=== PATIENT | male | born 1980 | race Caucasian/White ===

== ENCOUNTER 2019-10-30 11:05 | Emergency (ER) | payer SELFPAY ==
--- NOTE | 2019-10-30 11:07 | ED.PDOC ---
History of Present Illness - General Time Seen by Provider: 10/30/19 11:07 Source: patient - History of Present Illness Initial Comments: 39 yo male with PMH of HTN, chronic smoker, marijuana abuse, noncompliance who presents with cc of chest pain. Reports has had a PRIDE for several days now. Approx 45 mins ago reported acute worsening of PRIDE - 8/10 severity, sharp, over whole head, no radiation, no known exacerbating factors. Shortly after that he developed new onset chest pain - located to center of chest, sharp constant 9/10 severity pains, worse with exertion, some radiation down left arm, accompanied by slight diaphoresis, nausea, and dyspnea. Took ASA 325 mg and came to ED - now reports only 5/10 severity and nausea and dyspnea resolved. States he has hx of HTN but does not take medicine and rarely sees a doctor. Denies fevers, chills, cough, vomiting/diarrhea, abd pain, leg swelling. No reported hx of cardiac disease. Allergies/Adverse Reactions: Allergies NO KNOWN ALLERGY Allergy (Verified 10/30/19 11:23) Review of Systems - Review of Systems Review of Systems: 10/30/19 11:31 as per HPI All other Systems: Reviewed and Negative Family Medical History - Family History Mother Family History: Unknown Physical Exam - Physical Exam General Appearance: Alert, No apparent distress Eye Exam: bilateral normal Ears, Nose, Throat: hearing grossly normal, normal ENT inspection, normal pharynx Neck: non-tender, full range of motion, supple, normal inspection Respiratory: rales - Bibasilar, other - diminished breath sounds throughout, worse at lung bases, palpation of center of chest recreates chest pain sx's Cardiovascular/Chest: normal peripheral pulses, no edema, no gallop, no JVD, no murmur, tachycardia Peripheral Pulses: radial,right: 2+, radial,left: 2+ Gastrointestinal/Abdominal: normal bowel sounds, non tender, soft, no organomegaly Back Exam: normal inspection Extremity: normal range of motion, non-tender, normal inspection, no pedal edema, no calf tenderness Neurologic: dietitian therapeutic II-XII nml as tested, no motor/sensory deficits, alert, normal mood/affect, oriented x 3 Skin Exam: normal color, warm/dry Progress - Progress Progress: 10/30/19 11:32 Chest pain -consider ACS, COPD, PE, anxiety, MSK, GERD, PNA, PTX, aortic dissection, other -stat cardiac work-up, labs, CXR -place PIV, 1 L NS bolus, Zofran 4 mg IV, NTG PRN 10/30/19 15:00 -Trop increased from <0.02 to 0.06 after 2 hours. Repeat EKG unchanged. Labs also reveal WBC 15,900, Lactate 1.7. Remainder of labs pretty unremarkable. -Concern for pericarditis vs NSTEMI. Spoke with Dr. Snow (cardiology) at [facility] over the phone. He would like another troponin, CPK, CK-MB, urine drug screen done and to call him with the results prior to transfer. Does not feel this is NSTEMI but rather pericarditis. -Pt remains stable, no chest pain for >1.5 hours in ED (resolved following IV fluids, rest, NTG). BP improved to normal but remains slightly tachycardic. 10/30/19 16:39 -Pt still without chest pain, remains stable. -Trop has increased again to 0.09. CK-MB, CPK, ESR, CRP all normal. Urine drug screen is negative. Spoke again with Dr. Snow who recommends ED to ED transfer since his troponin continues to rise. However, still feels likely pericarditis rather than NSTEMI. -Spoke with Dr. Sprague at [facility] ED who accepts for transfer, stable to go via ground EMS Salo Troy MD Billing #[id number] 10/30/19 11:17 IV Care:Saline Lock per Protoc QSHIFT Telemetry .ONCE Sodium Chloride 0.9% (Flush) [Saline Flush Syringe] 10 ml IV PRN PRN 10/30/19 11:30 EKG STAT 10/30/19 13:30 EKG STAT 10/30/19 14:30 Heparin Premix [Heparin/D5w 25,000U/500ML] 25,000 units Premix Bag 1 bag IVS PRN 10/30/19 16:31 BOLUS Sodium Chloride 0.9% 1000ML [Ns 1000 ml] 1,000 ml IVS ONCE 10/31/19 09:00 Pulse Ox Daily Laboratory Results - last 24 hr 10/30/19 10/30/19 10/30/19 11:32 11:32 11:32 WBC 15.9 H RBC 5.28 Hgb 16.3 Hct 47.8 MCV 90.7 MCH 30.9 MCHC 34.1 RDW 13.2 Plt Count 272 MPV 8.2 Absolute Neuts (auto) 13.10 H Absolute Lymphs (auto) 1.90 Absolute Monos (auto) 0.70 Absolute Eos (auto) 0.10 Absolute Basos (auto) 0.10 Neutrophils % 82.3 H Lymphocytes % 12.0 L Monocytes % 4.5 Eosinophils % 0.7 L Basophils % 0.5 ESR D-Dimer, Quantitative < 131 L Sodium 138 Potassium 4.1 Chloride 104 Carbon Dioxide 24 Anion Gap 14.1 BUN 13 Creatinine 1.08 BUN/Creatinine Ratio 12.0 Random Glucose 138 H Serum Osmolality 278.0 Lactic Acid Calcium 9.6 Total Bilirubin 0.9 AST 26 ALT 28 Alkaline Phosphatase 98 Creatine Kinase CK-MB (CK-2) Troponin I C-Reactive Protein B-Natriuretic Peptide < 5.0 Serum Total Protein 7.1 Albumin 4.1 Globulin 3.0 Albumin/Globulin Ratio 1.4 Lipase Urine Color Urine Appearance Urine pH Ur Specific [place] Urine Protein Urine Glucose (UA) Urine Ketones Urine Blood Urine Nitrite Urine Bilirubin Urine Urobilinogen Ur Leukocyte Esterase Urine RBC Urine WBC Ur Epithelial Cells Amorphous Sediment Urine Bacteria Urine Opiates Screen Urine Barbiturates Ur Phencyclidine Scrn U Amphetamin/Meth Scrn U Benzodiazepines Scrn U Cocaine Metab Screen U Cannabinoids Screen 10/30/19 10/30/19 10/30/19 11:32 11:32 11:32 WBC RBC Hgb Hct MCV MCH MCHC RDW Plt Count MPV Absolute Neuts (auto) Absolute Lymphs (auto) Absolute Monos (auto) Absolute Eos (auto) Absolute Basos (auto) Neutrophils % Lymphocytes % Monocytes % Eosinophils % Basophils % ESR D-Dimer, Quantitative Sodium Potassium Chloride Carbon Dioxide Anion Gap BUN Creatinine BUN/Creatinine Ratio Random Glucose Serum Osmolality Lactic Acid 1.7 Calcium Total Bilirubin AST ALT Alkaline Phosphatase Creatine Kinase CK-MB (CK-2) Troponin I < 0.02 C-Reactive Protein B-Natriuretic Peptide Serum Total Protein Albumin Globulin Albumin/Globulin Ratio Lipase 24 Urine Color Urine Appearance Urine pH Ur Specific [place] Urine Protein Urine Glucose (UA) Urine Ketones Urine Blood Urine Nitrite Urine Bilirubin Urine Urobilinogen Ur Leukocyte Esterase Urine RBC Urine WBC Ur Epithelial Cells Amorphous Sediment Urine Bacteria Urine Opiates Screen Urine Barbiturates Ur Phencyclidine Scrn U Amphetamin/Meth Scrn U Benzodiazepines Scrn U Cocaine Metab Screen U Cannabinoids Screen 10/30/19 10/30/19 10/30/19 11:32 11:50 12:00 WBC RBC Hgb Hct MCV MCH MCHC RDW Plt Count MPV Absolute Neuts (auto) Absolute Lymphs (auto) Absolute Monos (auto) Absolute Eos (auto) Absolute Basos (auto) Neutrophils % Lymphocytes % Monocytes % Eosinophils % Basophils % ESR D-Dimer, Quantitative Sodium Potassium Chloride Carbon Dioxide Anion Gap BUN Creatinine BUN/Creatinine Ratio Random Glucose Serum Osmolality Lactic Acid Calcium Total Bilirubin AST ALT Alkaline Phosphatase Creatine Kinase 108 CK-MB (CK-2) Troponin I C-Reactive Protein B-Natriuretic Peptide Serum Total Protein Albumin Globulin Albumin/Globulin Ratio Lipase Urine Color Yellow Urine Appearance Clear Urine pH 6.5 Ur Specific [place] 1.010 Urine Protein Negative Urine Glucose (UA) Negative Urine Ketones Negative Urine Blood Negative Urine Nitrite Negative Urine Bilirubin Negative Urine Urobilinogen 0.2 Ur Leukocyte Esterase Negative Urine RBC 0 Urine WBC 0 Ur Epithelial Cells 0 Amorphous Sediment 1+ Urine Bacteria Rare Urine Opiates Screen Negative Urine Barbiturates Negative Ur Phencyclidine Scrn Negative U Amphetamin/Meth Scrn Negative U Benzodiazepines Scrn Negative U Cocaine Metab Screen Negative U Cannabinoids Screen Negative 10/30/19 10/30/19 10/30/19 13:35 15:08 15:08 WBC RBC Hgb Hct MCV MCH MCHC RDW Plt Count MPV Absolute Neuts (auto) Absolute Lymphs (auto) Absolute Monos (auto) Absolute Eos (auto) Absolute Basos (auto) Neutrophils % Lymphocytes % Monocytes % Eosinophils % Basophils % ESR 1 D-Dimer, Quantitative Sodium Potassium Chloride Carbon Dioxide Anion Gap BUN Creatinine BUN/Creatinine Ratio Random Glucose Serum Osmolality Lactic Acid Calcium Total Bilirubin AST ALT Alkaline Phosphatase Creatine Kinase CK-MB (CK-2) 1.7 Troponin I 0.06 H 0.09 H* C-Reactive Protein B-Natriuretic Peptide Serum Total Protein Albumin Globulin Albumin/Globulin Ratio Lipase Urine Color Urine Appearance Urine pH Ur Specific [place] Urine Protein Urine Glucose (UA) Urine Ketones Urine Blood Urine Nitrite Urine Bilirubin Urine Urobilinogen Ur Leukocyte Esterase Urine RBC Urine WBC Ur Epithelial Cells Amorphous Sediment Urine Bacteria Urine Opiates Screen Urine Barbiturates Ur Phencyclidine Scrn U Amphetamin/Meth Scrn U Benzodiazepines Scrn U Cocaine Metab Screen U Cannabinoids Screen 10/30/19 15:08 WBC RBC Hgb Hct MCV MCH MCHC RDW Plt Count MPV Absolute Neuts (auto) Absolute Lymphs (auto) Absolute Monos (auto) Absolute Eos (auto) Absolute Basos (auto) Neutrophils % Lymphocytes % Monocytes % Eosinophils % Basophils % ESR D-Dimer, Quantitative Sodium Potassium Chloride Carbon Dioxide Anion Gap BUN Creatinine BUN/Creatinine Ratio Random Glucose Serum Osmolality Lactic Acid Calcium Total Bilirubin AST ALT Alkaline Phosphatase Creatine Kinase CK-MB (CK-2) Troponin I C-Reactive Protein 0.8 B-Natriuretic Peptide Serum Total Protein Albumin Globulin Albumin/Globulin Ratio Lipase Urine Color Urine Appearance Urine pH Ur Specific [place] Urine Protein Urine Glucose (UA) Urine Ketones Urine Blood Urine Nitrite Urine Bilirubin Urine Urobilinogen Ur Leukocyte Esterase Urine RBC Urine WBC Ur Epithelial Cells Amorphous Sediment Urine Bacteria Urine Opiates Screen Urine Barbiturates Ur Phencyclidine Scrn U Amphetamin/Meth Scrn U Benzodiazepines Scrn U Cocaine Metab Screen U Cannabinoids Screen - EKG/XRAY/CT EKG: Sinus, Tachy - HR 120, min <[address] segment elevation V1 and T wave inversion in lead III, no q waves, axis and intervals normal, no prior EKG for comparison XRAY: chest - no acute processes per my read - Additional EKG/XRAY/Consults EKG #2: Unchanged from - initial Departure - Departure Clinical Impression: Pericarditis, NSTEMI (non-ST elevated myocardial infarction) Time of Disposition: 16:38 Disposition: Transfer to Hospital Condition: Fair Departure Forms: ED Discharge - Pt. Copy, Patient Portal Self Enrollment Instructions: DI for Chest Pain Transfer to Outside Facility - Transfer Information Decision to Transfer Date: 10/30/19 Decision to Transfer Time: 16:39 Reason for Transfer: required specialist not available - cardiology Accepting Provider:: Dr. Sprague (ED) Accepting Facility: [facility]
[2019-10-30] MEDS ORDERED: SODIUM CHLORIDE 0.9% (FLUSH) 10 ML SYG IV PRN (11:17)
[2019-10-30] MEDS ORDERED: NITROGLYCERIN 0.4 MG 25 EA TAB SL ONE (11:18)
[2019-10-30] MEDS ORDERED: SODIUM CHLORIDE 0.9% 1000ML 1,000 ML IVS ONE ×4 (11:18→16:31)
[2019-10-30] MEDS ORDERED: ONDANSETRON INJ 4 MG/2 ML VIAL IV ONE (11:27)
--- NOTE | 2019-10-30 12:24 | RAD ---
EXAM DESCRIPTION: Chest,1 View CLINICAL HISTORY: chest pain COMPARISON: None FINDINGS: Portable frontal view the thorax. No consolidation, effusion or pneumothorax is demonstrated. Heart and mediastinum within normal limits. No acute osseous pathology. IMPRESSION: Negative portable chest. Electronically signed by: Dong Red MD 10/30/2019 12:22 PM CDT
[2019-10-30] MEDS ORDERED: ACETAMINOPHEN 500 MG TAB PO ONE (13:26)
[2019-10-30] MEDS ORDERED: HEPARIN SODIUM (PORCINE) 5,000 U/ML VIAL IV ONE (14:20)
[2019-10-30] MEDS ORDERED: HEPARIN PREMIX 25,000 UNITS in PREMIX BAG 1 BAG IVS SCH (14:30)
[2019-10-30] MEDS ORDERED: HEPARIN PREMIX 500 ML ONE (14:46)
[2019-10-30] MEDS ORDERED: traMADol HCL 50 MG TAB PO ONE (15:17)
[2019-10-30] MEDS ORDERED: NICOTINE PATCH 21 MG TD ONE (16:49)
[2019-10-30 17:22] VITALS: BP 131/102; TEMP 96.5; O2SAT 97
== END 2019-10-30 17:42 | disposition short-term general hospital (02) ==
LOC: ER 11:05
DX: I21.4 Non-ST elevation (NSTEMI) myocardial infarction (principal); I31.9 Disease of pericardium, unspecified; R00.0 Tachycardia, unspecified; R51 Headache; R11.0 Nausea; I10 Essential (primary) hypertension; F17.200 Nicotine dependence, unspecified, uncomplicated; F12.10 Cannabis abuse, uncomplicated; Z91.14 Patient's other noncompliance with medication regimen
CPT/HCPCS: 36415; 71045; 80053; 80307; 81001; 82550; 82553; 83605; 83690; 83880; 84484; 85025; 85379; 85651; 86140; 93005; 94760; J1644; J2405; J7030

== ENCOUNTER → 2019-11-01 | Outpatient (CLI) | payer OTHER | DX: I10 Essential (primary) hypertension (principal); Z13.29 Encounter for screening for other suspected endocrine disorder ==

== ENCOUNTER 2020-07-29 08:10 | Emergency (ER) | payer OTHER, SELFPAY ==
[2020-07-29] MEDS ORDERED: SODIUM CHLORIDE 0.9% 1000ML 1,000 ML ONE (08:36)
[2020-07-29] MEDS ORDERED: SODIUM CHLORIDE 0.9% 1000ML 1,000 ML IVS ONE (08:42)
[2020-07-29] MEDS ORDERED: diphenhydrAMINE HCL 50 MG/ML VIAL IV ONE (08:42)
[2020-07-29] MEDS ORDERED: KETOROLAC TROMETHAMINE INJ 30 MG/ML VIAL IV ONE (08:42)
[2020-07-29] MEDS ORDERED: METOCLOPRAMIDE HCL INJ 10 MG/2 ML VIAL IV ONE (08:42)
--- NOTE | 2020-07-29 08:50 | ED.PDOC ---
History of Present Illness - General Chief Complaint: Blood Pressure Problem Stated Complaint: passed out, low BP Time Seen by Provider: 07/29/20 08:41 Source: patient, RN notes reviewed, Vital Signs reviewed Exam Limitations: no limitations - History of Present Illness Initial Comments: PATIENT PRESENTS W/ ACUTE ONSET OF NAUSEA AND VOMITING AND THEN BRIEF SYNCOPAL EPISODE ASSOCIATED WITH LOW BLOOD PRESSURE AT HOME. PATIENT HAS NEAR DAILY PRIDE AND REPORTS ONE THIS MORNING, BUT PRIDE ARE NOT NORMALLY ASSOCIATED WITH NAUSEA. PATIENT HAS HISTORY OF HYPERTENSION BUT HAS NOT BEEN ON MEDS FOR A WEEK DUE TO "RAN OUT OF MEDS". DENIES OTHER HEALTH PROBLEMS. Loss of Consciousness: brief (seconds) Current Symptoms: back to normal, dizziness, headache Allergies/Adverse Reactions: Allergies NO KNOWN ALLERGY Allergy (Verified 07/29/20 08:22) Home Medications: Ambulatory Orders Ketorolac Tromethamine [Toradol Tabs] 10 mg PO Q4HR PRN #15 tab 07/29/20 Ondansetron Odt [Zofran ODT] 0 mg PO TID PRN #10 tab 07/29/20 Review of Systems - Review of Systems Constitutional: States: diaphoresis, weakness. Denies: chills, fever EENTM: States: no symptoms reported. Denies: tearing, nose congestion, throat swelling, mouth swelling Respiratory: States: no symptoms reported. Denies: cough, short of breath, wheezing Gastrointestinal/Abdominal: States: nausea, vomiting. Denies: constipation, diarrhea Genitourinary: Denies: discharge, dysuria, frequency, hematuria Musculoskeletal: States: muscle pain - CHRONIC, muscle stiffness Skin: Denies: dryness, lumps, rash Neurological: States: no symptoms reported Endocrine: States: no symptoms reported Hematologic/Lymphatic: States: no symptoms reported Past Medical History (General) - Patient Medical History Hx Congestive Heart Failure: No Hx Hypertension: Yes Surgical History: no surgical history - Vaccination History Hx Tetanus, Diphtheria Vaccination: No Hx Influenza Vaccination: No Hx Pneumococcal Vaccination: No - Social History Hx Tobacco Use: Yes Hx Alcohol Use: Yes - Activities of Daily Living Hospice Agency (if applicable):: None - Female History Patient is a Female of Child Bearing Age (10 -59 yrs old): No Physical Exam - Physical Exam General Appearance: Alert, Comfortable, Well Developed, Well Groomed Eyes, Ears, Nose, Throat Exam: PERRL/EOMI, normal ENT inspection, TMs normal Neck: non-tender, full range of motion, supple Cardiovascular/Respiratory: regular rate, rhythm, no M/R/G, normal peripheral pulses Gastrointestinal/Abdominal: normal bowel sounds, non tender, soft, no organomegaly Extremity: normal range of motion, non-tender, normal inspection Mental Status: alert, oriented x 3, depressed affect employee benefits manager Exam: normal hearing, normal speech Coordination/Gait: normal finger to nose, normal gait, negative Romberg's sign Progress - EKG/XRAY/CT EKG: Sinus Comments: NO STEMI Departure - Departure Clinical Impression: Atypical syncope Time of Disposition: 10:40 Disposition: Discharge to Home or Self Care Condition: Good Departure Forms: ED Discharge - Pt. Copy, Patient Portal Self Enrollment Instructions: DI for High Blood Pressure Referrals: Naomi Ayala MD [Primary Care Provider] - 1-2 Weeks Prescriptions: Ketorolac Tromethamine [Toradol Tabs] 10 mg PO Q4HR PRN #15 tab PRN Reason: Headache Or Mild Pain Ondansetron Odt [Zofran ODT] 0 mg PO TID PRN #10 tab PRN Reason: Nausea Home Medications: Ambulatory Orders Ketorolac Tromethamine [Toradol Tabs] 10 mg PO Q4HR PRN #15 tab 07/29/20 Ondansetron Odt [Zofran ODT] 0 mg PO TID PRN #10 tab 07/29/20 Additional Instructions: RETURN IF SYMPTOMS PERSIST. RECOMMEND FOLLOW UP WITH PCP FOR ONGOING EFFORTS TO CONTROL HEADACHE SYMPTOMS.
[2020-07-29 11:15] VITALS: BP 121/89; TEMP 97.6; O2SAT 96
== END 2020-07-29 11:16 | disposition home or self-care (01) ==
LOC: ER 08:10
DX: R55 Syncope and collapse (principal); R11.2 Nausea with vomiting, unspecified; I10 Essential (primary) hypertension; R53.1 Weakness; R51.9 Headache, unspecified; Z87.891 Personal history of nicotine dependence; Z79.899 Other long term (current) drug therapy; Z91.14 Patient's other noncompliance with medication regimen; Z20.828 Contact with and (suspected) exposure to other viral communicable diseases
CPT/HCPCS: 36415; 80053; 83605; 85025; 87635; 93005; J1200; J1885; J2765; J7030